=== PATIENT | female | born 1960 | race Caucasian/White ===

== ENCOUNTER → 2017-01-15 | Outpatient (CLI) | payer OTHER ==
[~2017-01-15] MED LIST: DICL100T PO; IMIT50TA PO; LORA-392 PO; ULTR50TA5 PO
[2017-01-15 14:44] LABS: AUTOMATED NEUTROPHIL # 3.4 TH/MM3 (1.8-7.7); BASOPHIL # 0.1 TH/MM3 (0-0.2); BASOPHIL % 1.5 % (0.0-2.0); EOSINOPHIL # 0.1 TH/MM3 (0-0.4); EOSINOPHIL % 2.2 % (0.0-4.0); HEMO FLAGS DIFF FINAL; LYMPH % 33.7 % (9.0-44.0); MEAN CELL VOLUME 81.5 FL (80.0-100.0); MEAN CORPUSCULAR HEMOGLOBIN 26.5 PG (27.0-34.0); MEAN CORPUSCULAR HGB CONC 32.5 % (32.0-36.0); MONO % 5.7 % (0.0-8.0); NEUT % 56.9 % (16.0-70.0); PLATELET COUNT 289 TH/MM3 (150-450); RED CELL DISTRIBUTION WIDTH 14.1 % (11.6-17.2)
[2017-01-15 14:55] LABS: APTT (PATIENT) 29.9 SEC (24.3-30.1); PROTHROMBIN TIME - PATIENT 10.9 SEC (9.8-11.6)
[2017-01-15 15:02] LABS: ANION GAP 6 MEQ/L (5-15); BICARBONATE 28.3 MEQ/L (21.0-32.0); BLOOD UREA NITROGEN 17 MG/DL (7-18); CHLORIDE 106 MEQ/L (98-107); GLUCOSE,FASTING 91 MG/DL (74-99); POTASSIUM 3.8 MEQ/L (3.5-5.1); SODIUM (NA) 140 MEQ/L (136-145)
[2017-01-15 15:06] LABS: ALKALINE PHOSPHATASE 87 U/L (45-117); ALT (GPT) 39 U/L (10-53); AST (GOT) 18 U/L (15-37); GLOMERULAR FILTRATION RATE 82 ML/MIN (>89); TOTAL BILIRUBIN ADULT 0.4 MG/DL (0.2-1.0)
--- NOTE | 2017-01-15 16:29 | RADRPT ---
EXAM DATE/TIME: 01/15/2017 15:42 [place] COMPARISON: No previous studies available for comparison. INDICATIONS : Evaluate for pneumonia, pneumothorax or communicable disease. Pre op for right kidney and cyst surger y. MEDICAL HISTORY : None. SURGICAL HISTORY : None. ENCOUNTER: Initial ACUITY: 1 day PAIN SCORE: 0/10 LOCATION: Bilateral chest FINDINGS: PA and lateral views of the chest demonstrate the lungs to be symmetrically aerated without evidence of mass, infiltrate or effusion. A moderate size hiatal hernia with air-fluid level. The cardiomedias tinal contours are unremarkable. Osseous structures are intact. CONCLUSION: Moderate size hiatal hernia. Clear lungs. Kevin Parish Jr., MD on January 15, 2017 at 16:27 Board Certified Radiologist. This report was verified electronically.
--- NOTE | 2017-01-17 18:43 | EKG ---
Date Performed: 01/15/2017 Time Performed: 14:40:38 PTAGE: 56 years EKG: Sinus rhythm POSSIBLE LEFT ATRIAL ENLARGEMENT RIGHT BUNDLE BRANCH BLOCK ABNORMAL ECG NO PREVIOUS TRACING DOCTOR: Truman Ricketts Interpretating Date/Time 01/17/2017 18:42:27
== END ==
LOC: CPRE 14:20
PROVIDERS: ATTEND Obstetrics & Gynecology Gynecologic Oncology
DX: Z01.810 Encounter for preprocedural cardiovascular examination (principal); Z01.812 Encounter for preprocedural laboratory examination; R19.09 Other intra-abdominal and pelvic swelling, mass and lump; I45.10 Unspecified right bundle-branch block
CPT/HCPCS: 36415; 71020; 80053; 82378; 85025; 85610; 85730; 86304; 93005

== ENCOUNTER 2017-01-21 06:07 | Inpatient (IN) | payer OTHER ==
[~2017-01-21] VITALS: Ht 162.6 cm; Wt 104.3 kg
[~2017-01-21 06:07] MED LIST changes: -LORA-392 PO; -ULTR50TA5 PO
[2017-01-21 06:30] VITALS: BP 197/96; PULSE 95; RESP 16; TEMP 97.5; O2SAT 99
[2017-01-21] MEDS ORDERED: SODIUM CHLORID 0.9% 500 ML IV PRN (06:30)
[2017-01-21] MEDS ORDERED: METOPROLOL TARTRATE 25 MG TAB PO PRN (06:30)
[2017-01-21] MEDS ORDERED: LACTATED RINGER'S 1000 ML IV PRN (06:30)
[2017-01-21] MEDS ORDERED: HEPARIN SODIUM - SQ 10,000 UNITS/ML VIAL SQ SCH (06:30)
[2017-01-21] MEDS ORDERED: CHLORHEXIDINE GLUCONATE 2 % 1 PACK (2 CLOTHS) TOPICAL PRN (06:30)
[2017-01-21] MEDS ORDERED: ceFAZolin 2 GM PREMIX 50 ML IV SCH (06:30)
[2017-01-21] MEDS ORDERED: INSULIN HUMAN REGULAR 1,000 UNITS/10 ML VIAL SQ PRN (06:30)
[2017-01-21] MEDS ORDERED: POVIDONE IODINE 5% (ANTISEPSIS KIT) 4 APPLICATIONS EACH NARE PRN (06:30)
[2017-01-21] MEDS ORDERED: ACETAMINOPHEN 1000 MG/100 ML VIAL IV ONE (07:28)
[2017-01-21] MEDS ORDERED: MIDAZOLAM HCL 2 MG/2 ML VIAL ONE (07:28)
[2017-01-21] MEDS ORDERED: ARTIFICIAL TEARS OPTH OINT 3.5 APPLIC/3.5 GM TUBO ONE (07:28)
[2017-01-21] MEDS ORDERED: DEXAMETHASONE SOD PHOS 4 MG/ML VIAL ONE (07:29)
[2017-01-21] MEDS ORDERED: fentaNYL CITRATE 250 MCG/5 ML AMP ONE ×2 (07:29→17:20)
[2017-01-21] MEDS ORDERED: SUGAMMADEX SODIUM 200 MG/2 ML VIAL IV PUSH ONE ×2 (07:29)
[2017-01-21] MEDS ORDERED: LIDOCAINE 1%/EPINEPHrine 1:100,000 SOLN 20 ML VIAL ONE (08:02)
[2017-01-21] MEDS ORDERED: ceFAZolin INJ 1,000 MG VIAL IV ONE ×2 (10:35→14:35)
[2017-01-21] MEDS ORDERED: MANNITOL INJ 50 ML ONE (10:52)
[2017-01-21] MEDS ORDERED: METHYLENE BLUE 10 MG/ML VIAL OTHER ONE (11:00)
[2017-01-21] MEDS ORDERED: ONDANSETRON HCL 4 MG/2 ML VIAL IV PUSH ONE (12:00)
[2017-01-21] MEDS ORDERED: LACTATED RINGER'S 1000 ML INJ 2,000 ML IV ONE (12:00)
[2017-01-21] MEDS ORDERED: ePHEDrine/NS 25 MG/5 ML SYR IV ONE (12:00)
[2017-01-21] MEDS ORDERED: PROPOFOL 200 MG/20 ML AMP IV ONE (12:00)
[2017-01-21] MEDS ORDERED: NORMOSOL R INJ 2,000 ML IV ONE (12:00)
[2017-01-21] MEDS ORDERED: PHENYLEPH/NS 1000 MCG/10 ML SYR IV ONE (12:00)
[2017-01-21] MEDS ORDERED: PHENYLEPHRINE HCL 10 MG/ML VIAL IV ONE (12:00)
[2017-01-21] MEDS ORDERED: diphenhydrAMINE HCL 25 MG CAP PO PRN (12:30)
[2017-01-21] MEDS ORDERED: SUMAtriptan SUCCINATE 50 MG TAB PO PRN (12:30)
[2017-01-21] MEDS ORDERED: oxyCODONE/ACETAMINOPHEN 5 MG/325 MG TAB PO PRN ×2 (12:30)
[2017-01-21] MEDS ORDERED: SODIUM CHLORIDE 0.9% FLUSH 10 ML FLUSH IV FLUSH PRN (12:30)
[2017-01-21] MEDS: KETOROLAC TROMETHAMINE 30 MG/ML (IVP) VIAL IVP SCH ×2 (12:30→18:30)
[2017-01-21 15:47] LABS: HEMATOCRIT 38.1 % (35.0-46.0); REVIEW FLAG FINAL
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
[2017-01-21] MEDS ORDERED: *morphine SULFATE 8 MG/ML PERIprocedure ONLY ONE (18:09)
[2017-01-21] MEDS ORDERED: *ONDANSETRON 4 MG VIAL PERIprocedural Use ONLY ONE (18:16)
[2017-01-21] MEDS: D5-1/2 NS + KCL 20 MEQ INJ 1,000 ML IV SCH ×2 (18:20→22:19)
[2017-01-21 20:30] VITALS: BP_SYST 122; BP_SYST 124; BP_DIAS 62; BP_DIAS 65; PULSE 81; RESP 20; TEMP 97.5; O2SAT 97
[2017-01-21] MEDS: HYDROmorphone HCL PF 1 MG/ML VIAL IVP PRN (20:31)
[2017-01-21] MEDS: SODIUM CHLORIDE 0.9% FLUSH 10 ML FLUSH IV FLUSH SCH (20:36)
[2017-01-21 20:43] VITALS: PULSE 81
[2017-01-21 22:00] VITALS: PULSE 68
[2017-01-22] VITALS (12 sets, daily range): BP systolic 101–160; BP diastolic 46–70; PULSE 66–86; RESP 15–28; TEMP 98.4–99.1; O2SAT 92–98
[2017-01-22] MEDS: ONDANSETRON HCL 4 MG/2 ML VIAL IVP PRN (00:28)
[2017-01-22] MEDS: KETOROLAC TROMETHAMINE 30 MG/ML (IVP) VIAL IVP SCH ×4 (00:28→17:40)
[2017-01-22 07:40] LABS: AUTOMATED NEUTROPHIL # 9.3 TH/MM3 (1.8-7.7); BASOPHIL % 0.2 % (0.0-2.0); HEMATOCRIT 32.4 % (35.0-46.0); HEMO FLAGS DIFF FINAL; LYMPH % 9.3 % (9.0-44.0); MEAN CELL VOLUME 81.9 FL (80.0-100.0); MEAN CORPUSCULAR HEMOGLOBIN 26.5 PG (27.0-34.0); MEAN CORPUSCULAR HGB CONC 32.3 % (32.0-36.0); MONO % 5.5 % (0.0-8.0); PLATELET COUNT 235 TH/MM3 (150-450); RED BLOOD COUNT 3.96 MIL/MM3 (4.00-5.30)
[2017-01-22] MEDS: D5-1/2 NS + KCL 20 MEQ INJ 1,000 ML IV SCH ×2 (08:19→12:50)
[2017-01-22 08:35] LABS: BICARBONATE 26.6 MEQ/L (21.0-32.0); POTASSIUM 4.2 MEQ/L (3.5-5.1)
[2017-01-22] MEDS ORDERED: LORazepam 2 MG/ML VIAL ONE (09:04)
--- NOTE | 2017-01-22 09:07 | HHI.PR ---
Subjective Patient symptoms today Postoperative day #1 Pain adequately controlled Objective Vital Signs Vital Signs Date Time Temp Pulse Resp B/P Pulse Ox O2 Delivery O2 Flow Rate FiO2 01/22/17 06:00 72 01/22/17 04:00 98.4 67 16 101/46 97 01/22/17 04:00 70 01/22/17 02:00 68 01/22/17 02:00 98.4 66 26 132/67 96 01/22/17 00:00 66 01/22/17 00:00 98.4 66 26 132/67 96 01/21/17 22:00 96 Nasal Cannula 2.00 01/21/17 22:00 68 01/21/17 20:43 81 01/21/17 20:30 97.5 81 20 122/62 97 124/65 01/21/17 20:00 97.6 80 15 120/58 98 Nasal Cannula 2 122/62 01/21/17 19:30 77 15 120/57 97 Nasal Cannula 2 119/58 01/21/17 19:15 79 15 113/58 97 Nasal Cannula 2 118/59 01/21/17 19:11 15 01/21/17 19:00 97.5 78 14 110/62 96 Nasal Cannula 2 114/60 01/21/17 18:45 83 13 127/66 100 Nasal Cannula 3 112/58 01/21/17 18:30 78 13 125/66 98 Nasal Cannula 3 109/64 01/21/17 18:15 79 14 136/75 99 Nasal Cannula 3 127/65 01/21/17 18:14 15 01/21/17 18:00 78 14 126/61 99 Nasal Cannula 3 129/70 01/21/17 17:50 97.8 83 18 132/78 98 Nasal Cannula 3 144/76 Intake & Output 01/22/17 01/22/17 07:00 19:00 Intake Total 1272 ml Output Total 1125 ml Balance 147 ml Intake Oral 20 ml IV Total 1252 ml Output Urine Total 1125 ml Result Diagram: 01/22/1771901/22/17719 Objective Remarks Abdomen soft, nondistended, mildly tender to palpation Wound sites clean and dry Extremities well-perfused, nontender Medications and IVs Current Medications Medications (Trade) Dose Ordered Sig/Carol Route Start Time Stop Time Status Last Admin Lactated Ringer's 1,000 ml @ 30 mls/hr Q24H PRN IV 01/21/17 06:30 01/24/17 06:29 01/21/17 06:30 (NS 500 ml Inj) 500 ml @ 30 mls/hr [id number] PRN IV 01/21/17 06:30 01/24/17 06:29 Sumatriptan Succinate 50 mg 50 mg ONCE PRN PO 01/21/17 12:30 01/22/17 12:29 (D5-1/2 NS + KCl 20 Meq Inj) 1,000 ml @ 100 mls/hr Q10H IV 01/21/17 12:19 01/21/17 22:19 (NS Flush) 2 ml UNSCH PRN IV FLUSH 01/21/17 12:30 (NS Flush) 2 ml BID IV FLUSH 01/21/17 21:00 01/21/17 20:36 (Toradol Inj) 30 mg Q6H IVP 01/21/17 12:30 01/23/17 06:31 01/22/17 06:17 (Dilaudid Pf Inj) 1 mg Q3H PRN IVP 01/21/17 12:30 01/21/17 20:31 (Benadryl) 25 mg Q6H PRN PO 01/21/17 12:30 (Zofran Inj) 4 mg Q6H PRN IVP 01/21/17 12:30 01/22/17 00:28 (Ativan) 0.5 mg Q8H PRN PO 01/21/17 12:30 (Ultram) 50 mg Q4H PRN PO 01/22/17 09:00 Assessment and Plan Assessment and Plan Urologic impression: Status post right partial nephrectomy with expected postoperative course. Plan: #1 out of bed to chair #2 continue with analgesic support #3 continue with incentive spirometry #4 advance diet as tolerated #5 check renal pathology when available Gal Arellano MD January 22, 2017 09:07
[2017-01-22] MEDS: SODIUM CHLORIDE 0.9% FLUSH 10 ML FLUSH IV FLUSH SCH ×2 (09:11→20:06)
[2017-01-22] MEDS ORDERED: LORazepam 2 MG/ML VIAL IV PRN (09:15)
[2017-01-22] MEDS: traMADol HCL 50 MG TAB PO PRN (14:39)
[2017-01-23] VITALS (10 sets, daily range): BP systolic 146–184; BP diastolic 56–90; PULSE 73–90; RESP 16–21; TEMP 96.1–99; O2SAT 94–97
[2017-01-23] MEDS: KETOROLAC TROMETHAMINE 30 MG/ML (IVP) VIAL IVP SCH ×2 (00:47→06:12)
[2017-01-23] MEDS: traMADol HCL 50 MG TAB PO PRN ×5 (03:23→21:47)
[2017-01-23] MEDS: D5-1/2 NS + KCL 20 MEQ INJ 1,000 ML IV SCH ×3 (03:53→21:48)
--- NOTE | 2017-01-23 07:36 | PD.ONC.PN ---
Subjective Subjective Remarks POD #2 pt feels well pain controlled denies nausea or vomiting Objective Data Date Time Temp Pulse Resp B/P Pulse Ox O2 Delivery O2 Flow Rate FiO2 01/23/17 07:00 96 Room Air 01/23/17 06:00 85 01/23/17 04:00 98.0 80 20 158/78 96 01/23/17 04:00 80 01/23/17 02:00 84 01/23/17 00:00 99.0 76 16 146/56 94 01/23/17 00:00 76 01/22/17 22:00 72 01/22/17 20:00 74 01/22/17 20:00 99.1 74 15 160/70 95 01/22/17 19:00 95 Room Air 01/22/17 18:40 19 01/22/17 18:00 70 01/22/17 16:00 98.5 86 17 126/58 94 01/22/17 16:00 86 01/22/17 14:00 83 01/22/17 12:00 76 28 121/60 92 01/22/17 12:00 76 01/22/17 10:00 78 01/22/17 08:00 98.4 70 16 104/54 98 Arterial Line 01/22/17 08:00 70 01/23/17 01/23/17 01/23/17 07:00 15:00 23:00 Intake Total 899 ml Output Total 575 ml Balance 324 ml Result Diagram: 01/22/17 0720 01/22/17 0720 Administered Medications Medications (Trade) Dose Ordered Sig/Carol Route PRN Reason Start Time Stop Time Status Last Admin Dose Admin Lactated Ringer's 1,000 ml @ 30 mls/hr Q24H PRN IV SEE LABEL COMMENTS 01/21/17 06:30 01/24/17 06:29 01/21/17 06:30 Potassium Chloride/Dextrose/ Sod Cl (D5-1/2 NS + KCl 20 Meq Inj) 1,000 ml @ 100 mls/hr Q10H IV 01/21/17 12:19 01/23/17 03:53 Sodium Chloride (NS Flush) 2 ml BID IV FLUSH 01/21/17 21:00 01/22/17 20:06 Hydromorphone HCl (Dilaudid Pf Inj) 1 mg Q3H PRN IVP PAIN SCALE 6 TO 10 01/21/17 12:30 01/21/17 20:31 Ondansetron HCl (Zofran Inj) 4 mg Q6H PRN IVP NAUSEA OR VOMITING 01/21/17 12:30 01/22/17 00:28 Tramadol HCl (Ultram) 50 mg Q4H PRN PO PAIN SCALE 1 TO 5 01/22/17 09:00 01/23/17 03:23 Objective Remarks GENERAL: Well-nourished, well-developed patient. SKIN: Warm and dry. HEAD: Normocephalic. EYES: No scleral icterus. No injection or drainage. CARDIOVASCULAR: Regular rate and rhythm without murmurs. RESPIRATORY: Breath sounds equal bilaterally. No accessory muscle use. GASTROINTESTINAL: Abdomen soft, non-tender, nondistended. SS are c/d/i EXTREMITIES: teds and scds MUSCULOSKELETAL: Adequate muscle tone. NEUROLOGICAL: No obvious focal deficit. Awake, alert, and oriented x3. PSYCHIATRIC: Appropriate mood and affect; insight and judgment normal. Assessment/Plan Problem List: (1) Renal mass, right Status: Resolved Plan: s/p partial right nephrectomy followed by Dr. Arellano (2) Pelvic mass in female Status: Resolved Plan: s/p RA lap hyst with BSO and resection of large pelvic mass remove moreno cath POD #2, ok to transfer to floor ok to get OOB to chair BID ADAT pain control encourage IS and deep breathing Attending Statement Dr. Chun is in agreement with this plan of care. Sheri Hogan January 23, 2017 07:36
[2017-01-23] MEDS: SODIUM CHLORIDE 0.9% FLUSH 10 ML FLUSH IV FLUSH SCH ×2 (09:46→21:00)
[2017-01-23] MEDS: HYDROmorphone HCL PF 1 MG/ML VIAL IVP PRN (09:46)
[2017-01-23] MEDS: ONDANSETRON HCL 4 MG/2 ML VIAL IVP PRN ×2 (11:43→17:50)
--- NOTE | 2017-01-23 13:09 | HHI.PR ---
Subjective Patient symptoms today Postoperative day #2 Complains of feeling nauseous Pain adequately controlled Objective Vital Signs Vital Signs Date Time Temp Pulse Resp B/P Pulse Ox O2 Delivery O2 Flow Rate FiO2 01/23/17 10:00 85 01/23/17 08:00 81 01/23/17 08:00 98.6 78 21 169/83 95 01/23/17 07:00 96 Room Air 01/23/17 06:00 85 01/23/17 04:00 98.0 80 20 158/78 96 01/23/17 04:00 80 01/23/17 02:00 84 01/23/17 00:00 99.0 76 16 146/56 94 01/23/17 00:00 76 01/22/17 22:00 72 01/22/17 20:00 74 01/22/17 20:00 99.1 74 15 160/70 95 01/22/17 19:00 95 Room Air 01/22/17 18:40 19 01/22/17 18:00 70 01/22/17 16:00 98.5 86 17 126/58 94 01/22/17 16:00 86 01/22/17 14:00 83 Intake & Output 01/23/17 01/23/17 06:59 18:59 Intake Total 1728 ml Output Total 1150 ml Balance 578 ml Intake Oral 200 ml IV Total 1528 ml Output Urine Total 1150 ml Result Diagram: 01/22/17 0720 01/22/17 0720 Objective Remarks Abdomen soft, nondistended, mildly tender to palpation Wound sites clean and dry Extremities well-perfused, nontender Medications and IVs Current Medications Medications (Trade) Dose Ordered Sig/Carol Route Start Time Stop Time Status Last Admin Lactated Ringer's 1,000 ml @ 30 mls/hr Q24H PRN IV 01/21/17 06:30 01/24/17 06:29 01/21/17 06:30 Sodium Chloride 500 ml @ 30 mls/hr [id number] PRN IV 01/21/17 06:30 01/24/17 06:29 (D5-1/2 NS + KCl 20 Meq Inj) 1,000 ml @ 100 mls/hr Q10H IV 01/21/17 12:19 01/23/17 09:45 (NS Flush) 2 ml UNSCH PRN IV FLUSH 01/21/17 12:30 (NS Flush) 2 ml BID IV FLUSH 01/21/17 21:00 01/23/17 09:46 (Dilaudid Pf Inj) 1 mg Q3H PRN IVP 01/21/17 12:30 01/23/17 09:46 (Benadryl) 25 mg Q6H PRN PO 01/21/17 12:30 (Zofran Inj) 4 mg Q6H PRN IVP 01/21/17 12:30 01/23/17 11:43 (Ativan) 0.5 mg Q8H PRN PO 01/21/17 12:30 (Ultram) 50 mg Q4H PRN PO 01/22/17 09:00 01/23/17 07:55 (Ativan Inj) 0.25 mg Q8H PRN IV 01/22/17 09:15 Assessment and Plan Assessment and Plan Urologic impression: Status post right partial nephrectomy with expected postoperative course. Plan: #1 encourage ambulation #2 continue with analgesic support #3 continue with incentive spirometry #4 advance diet as tolerated #5 discontinue Lamb catheter #6 check renal pathology when available Gal Arellano MD January 23, 2017 13:08
[2017-01-23] MEDS: LORazepam 0.5 MG TAB PO PRN (16:33)
[2017-01-24] VITALS (7 sets, daily range): BP systolic 119–175; BP diastolic 76–94; PULSE 77–113; RESP 16–20; TEMP 97.7–99; O2SAT 94–96
[2017-01-24] MEDS: LORazepam 0.5 MG TAB PO PRN (00:23)
[2017-01-24] MEDS: HYDROmorphone HCL PF 1 MG/ML VIAL IVP PRN ×6 (01:45→22:34)
[2017-01-24] MEDS: ONDANSETRON HCL 4 MG/2 ML VIAL IVP PRN ×2 (01:45→18:37)
[2017-01-24 05:08] LABS: HEMATOCRIT 28.3 % (35.0-46.0); MEAN CELL VOLUME 81.2 FL (80.0-100.0); MEAN CORPUSCULAR HEMOGLOBIN 27.7 PG (27.0-34.0); MEAN CORPUSCULAR HGB CONC 34.1 % (32.0-36.0); PLATELET COUNT 193 TH/MM3 (150-450); RED BLOOD COUNT 3.49 MIL/MM3 (4.00-5.30); RED CELL DISTRIBUTION WIDTH 13.8 % (11.6-17.2); REVIEW FLAG FINAL; WHITE BLOOD COUNT 10.4 TH/MM3 (4.0-11.0)
[2017-01-24 05:37] LABS: MAGNESIUM 1.9 MG/DL (1.5-2.5); POTASSIUM 4.1 MEQ/L (3.5-5.1)
[2017-01-24] MEDS: D5-1/2 NS + KCL 20 MEQ INJ 1,000 ML IV SCH (08:02)
[2017-01-24] MEDS: SODIUM CHLORIDE 0.9% FLUSH 10 ML FLUSH IV FLUSH SCH ×2 (08:03→21:00)
--- NOTE | 2017-01-24 08:20 | PD.ONC.PN ---
Subjective Subjective Remarks POD #3 pt states pain in controlled denies any n/v was OOB to chair yesterday encourage intake and d/c josh reyes RN at bedside Objective Data Date Time Temp Pulse Resp B/P Pulse Ox O2 Delivery O2 Flow Rate FiO2 01/24/17 05:00 98.3 84 16 153/89 96 01/24/17 00:00 99.0 93 18 171/90 96 01/23/17 20:30 Room Air 01/23/17 20:15 97.9 90 18 170/90 96 01/23/17 15:50 97.4 76 16 158/79 97 01/23/17 13:57 74 18 174/86 01/23/17 11:30 96.1 73 16 184/84 94 01/23/17 10:00 85 Result Diagram: 01/24/17 0448 01/24/17 0448 Laboratory Results Laboratory Tests Test 01/24/17 04:48 White Blood Count 10.4 TH/MM3 Red Blood Count 3.49 MIL/MM3 Hemoglobin 9.7 GM/DL Hematocrit 28.3 % Mean Corpuscular Volume 81.2 FL Mean Corpuscular Hemoglobin 27.7 PG Mean Corpuscular Hemoglobin 34.1 % Concent Red Cell Distribution Width 13.8 % Platelet Count 193 TH/MM3 Mean Platelet Volume 8.5 FL Sodium Level 138 MEQ/L Potassium Level 4.1 MEQ/L Chloride Level 103 MEQ/L Carbon Dioxide Level 29.0 MEQ/L Anion Gap 6 MEQ/L Blood Urea Nitrogen 8 MG/DL Creatinine 0.79 MG/DL Estimat Glomerular Filtration 75 ML/MIN Rate Random Glucose 104 MG/DL Calcium Level 7.9 MG/DL Phosphorus Level 2.1 MG/DL Magnesium Level 1.9 MG/DL Administered Medications Medications (Trade) Dose Ordered Sig/Carol Route PRN Reason Start Time Stop Time Status Last Admin Dose Admin Potassium Chloride/Dextrose/ Sod Cl (D5-1/2 NS + KCl 20 Meq Inj) 1,000 ml @ 100 mls/hr Q10H IV 01/21/17 12:19 01/24/17 08:02 Sodium Chloride (NS Flush) 2 ml BID IV FLUSH 01/21/17 21:00 01/23/17 09:46 Hydromorphone HCl (Dilaudid Pf Inj) 1 mg Q3H PRN IVP PAIN SCALE 6 TO 10 01/21/17 12:30 01/24/17 06:40 Ondansetron HCl (Zofran Inj) 4 mg Q6H PRN IVP NAUSEA OR VOMITING 01/21/17 12:30 01/24/17 01:45 Lorazepam (Ativan) 0.5 mg Q8H PRN PO ANXIETY 01/21/17 12:30 01/24/17 00:23 Tramadol HCl (Ultram) 50 mg Q4H PRN PO PAIN SCALE 1 TO 5 01/22/17 09:00 01/23/17 21:47 Objective Remarks GENERAL: Well-nourished, well-developed patient. SKIN: Warm and dry. HEAD: Normocephalic. EYES: No scleral icterus. No injection or drainage. CARDIOVASCULAR: Regular rate and rhythm without murmurs. RESPIRATORY: Breath sounds equal bilaterally. No accessory muscle use. GASTROINTESTINAL: Abdomen soft, non-tender, nondistended. SS are c/d/i EXTREMITIES: teds and scds MUSCULOSKELETAL: Adequate muscle tone. NEUROLOGICAL: No obvious focal deficit. Awake, alert, and oriented x3. PSYCHIATRIC: Appropriate mood and affect; insight and judgment normal. Assessment/Plan Problem List: (1) Renal mass, right Status: Resolved Plan: s/p partial right nephrectomy followed by Dr. Arellano (2) Pelvic mass in female Status: Resolved Plan: s/p RA lap hyst with BSO and resection of large pelvic mass POD #3 ADAT OOB to chair and ambulate encourage intake and d/c moreno today will decrease IVF to KVO Dr. Chun ordered K phos for electrolyte replacement anticipate discharge home in next 24 hours Sheri Hogan January 24, 2017 08:20
[2017-01-24] MEDS: POTASSIUM PHOSPHATE/SODIUM PHOSPHATE 250 MG TAB PO SCH ×2 (14:08→22:32)
--- NOTE | 2017-01-24 14:16 | HHI.PR ---
Subjective Patient symptoms today Postoperative day #3 Feeling better today Tolerating regular diet Objective Vital Signs Vital Signs Date Time Temp Pulse Resp B/P Pulse Ox O2 Delivery O2 Flow Rate FiO2 01/24/17 12:49 86 157/76 01/24/17 11:53 98.0 77 20 175/94 94 01/24/17 08:13 96 Room Air 21 01/24/17 07:00 97.7 81 20 141/88 95 01/24/17 05:00 98.3 84 16 153/89 96 01/24/17 00:00 99.0 93 18 171/90 96 01/23/17 20:30 Room Air 01/23/17 20:15 97.9 90 18 170/90 96 01/23/17 15:50 97.4 76 16 158/79 97 Intake & Output 01/24/17 01/24/17 07:00 19:00 Intake Total 2148 ml Output Total 850 ml 425 ml Balance 1298 ml -425 ml Intake Oral 480 ml IV Total 1668 ml Output Urine Total 850 ml 425 ml Result Diagram: 01/24/17 0448 01/24/17447 Other Results Pathology demonstrated renal cell carcinoma with negative surgical margins. pT1a pNX. Objective Remarks Abdomen soft, nondistended, mildly tender to palpation Wound sites clean and dry Extremities well-perfused, nontender Medications and IVs Current Medications Medications (Trade) Dose Ordered Sig/Carol Route Start Time Stop Time Status Last Admin (D5-1/2 NS + KCl 20 Meq Inj) 1,000 ml @ 0 mls/hr Q10H IV 01/21/17 12:19 01/24/17 08:02 (NS Flush) 2 ml UNSCH PRN IV FLUSH 01/21/17 12:30 (NS Flush) 2 ml BID IV FLUSH 01/21/17 21:00 01/23/17 09:46 (Dilaudid Pf Inj) 1 mg Q3H PRN IVP 01/21/17 12:30 01/24/17 14:08 (Benadryl) 25 mg Q6H PRN PO 01/21/17 12:30 (Zofran Inj) 4 mg Q6H PRN IVP 01/21/17 12:30 01/24/17 01:45 (Ativan) 0.5 mg Q8H PRN PO 01/21/17 12:30 01/24/17 00:23 (Ultram) 50 mg Q4H PRN PO 01/22/17 09:00 01/23/17 21:47 (Ativan Inj) 0.25 mg Q8H PRN IV 01/22/17 09:15 01/24/17 11:29 (K-Phos Neutral) 250 mg Q8HR PO 01/24/17 14:00 01/25/17 12:00 01/24/17 14:08 Assessment and Plan Assessment and Plan Urologic impression: Status post right partial nephrectomy with expected postoperative course. Plan: #1 encourage ambulation #2 continue with analgesic support #3 discontinue Lamb catheter #4 anticipate discharge home tomorrow Gal Arellano MD January 24, 2017 14:16
[2017-01-25] VITALS: BP 145/78; PULSE 89; RESP 17; TEMP 98.5; O2SAT 95
[2017-01-25] MEDS: HYDROmorphone HCL PF 1 MG/ML VIAL IVP PRN ×2 (01:22→08:13)
[2017-01-25] MEDS: LORazepam 0.5 MG TAB PO PRN (01:51)
[2017-01-25 04:00] VITALS: BP 158/81; PULSE 78; RESP 18; TEMP 99; O2SAT 95
[2017-01-25] MEDS: POTASSIUM PHOSPHATE/SODIUM PHOSPHATE 250 MG TAB PO SCH (05:55)
[2017-01-25] MEDS ORDERED: LORA-392 PO (07:04)
[2017-01-25] MEDS ORDERED: ULTR50TA5 PO (07:04)
[2017-01-25 08:00] VITALS: BP 134/69; PULSE 81; RESP 17; TEMP 98.8; O2SAT 95
[2017-01-25] MEDS: ONDANSETRON HCL 4 MG/2 ML VIAL IVP PRN (08:14)
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
[2017-01-25 12:00] VITALS: BP 131/66; PULSE 79; RESP 16; TEMP 97.9; O2SAT 96
--- NOTE | 2017-01-25 13:25 | HHI.PR ---
Subjective Patient symptoms today Feeling better today. Tolerating oral intake well. Pain adequately controlled. Ambulating well. Objective Vital Signs Vital Signs Date Time Temp Pulse Resp B/P Pulse Ox O2 Delivery O2 Flow Rate FiO2 01/25/17 12:00 97.9 79 16 131/66 96 01/25/17 08:00 98.8 81 17 134/69 95 01/25/17 04:00 99.0 78 18 158/81 95 01/25/17 00:00 98.5 89 17 145/78 95 01/24/17 20:20 Room Air 01/24/17 20:00 98.1 19 145/88 96 01/24/17 15:51 98.1 113 20 119/76 94 Result Diagram: 01/24/17 0448 01/24/178 Objective Remarks Abdomen soft, nondistended, mildly tender to palpation Wound sites clean and dry Extremities well-perfused, nontender Medications and IVs Current Medications Medications (Trade) Dose Ordered Sig/Carol Route Start Time Stop Time Status Last Admin (D5-1/2 NS + KCl 20 Meq Inj) 1,000 ml @ 0 mls/hr Q10H IV 01/21/17 12:19 01/24/17 08:02 (NS Flush) 2 ml UNSCH PRN IV FLUSH 01/21/17 12:30 (NS Flush) 2 ml BID IV FLUSH 01/21/17 21:00 01/23/17 09:46 (Dilaudid Pf Inj) 1 mg Q3H PRN IVP 01/21/17 12:30 01/25/17 08:13 (Benadryl) 25 mg Q6H PRN PO 01/21/17 12:30 (Zofran Inj) 4 mg Q6H PRN IVP 01/21/17 12:30 01/25/17 08:14 (Ativan) 0.5 mg Q8H PRN PO 01/21/17 12:30 01/25/17 01:51 (Ultram) 50 mg Q4H PRN PO 01/22/17 09:00 01/23/17 21:47 (Ativan Inj) 0.25 mg Q8H PRN IV 01/22/17 09:15 01/24/17 11:29 Assessment and Plan Assessment and Plan Urologic impression: #1 status post robot-assisted laparoscopic right partial nephrectomy #2 pathology demonstrated renal cell carcinoma with negative surgical margins Plan: #1 urologically stable to discharge home #2 patient advised to follow up with me in the office in approximately 2-3 weeks Gal Arellano MD January 25, 2017 13:25
[2017-01-25] MEDS: traMADol HCL 50 MG TAB PO PRN (13:34)
--- NOTE | 2017-01-28 08:13 | MD ---
cc: VAISHALI ORDONEZ,MAGY MORSE,KEVIN ALEMAN,SABRA ARELLANO,GURDEEP Fan MD ADMISSION DATE: 01/21/2017 DISCHARGE DATE: 01/25/2017 PROCEDURE 01/21/2017, robotic-assisted laparoscopic hysterectomy, bilateral salpingo-oophorectomy (including removal of a 28 cm left ovarian cystic mass) and robotic-assisted laparoscopic right partial nephrectomy. HOSPITAL COURSE She did well during the hospital course, initially watched in the intensive care unit, progressed and transferred to the [facility]. The patient's labs yesterday, H&H 9.7, 28.3, white count 10.4, platelet count 193. Electrolytes essentially normal, phosphorus slightly low at 2.1 being replaced, renal function normal, BUN and creatinine 8, 0.79. In's and out's last 24 hours 1970/1475 plus voiding. PHYSICAL EXAMINATION VITAL SIGNS: She remained afebrile, pulse 78-113, respirations 17-20, blood pressure 119-158 over 76-81, O2 saturations greater than equal to 95%. GENERAL: Alert and oriented x3, in no acute distress. LUNGS: Lungs are clear. CARDIOVASCULAR: Regular rate and rhythm. ABDOMEN: The abdominal laparoscopic incisions are clean and dry. RIVET HEATER: No bleeding. EXTREMITIES: No palpable cords, nontender. ASSESSMENT Postoperative day #4, tolerating oral intake, able to void without to difficulty, increasing her out of bed activity. Hemodynamically stable. Activities restrictions were reviewed. Preliminary pathology was discussed. Questions were answered. She expressed good understanding. PLAN Anticipate discharge to home with plans to follow up with Sabra Aleman in 2 weeks and follow up with Dr. Arellano in urology in 2 weeks. She is to resume her prior medications. Prescription for tramadol and Ativan and our office number is made available. She is to contact us should she have any questions or problems between now and the time of scheduled followup. MD SHIRA Rock/PIO /7:10 AM /7:58 AM
== END 2017-01-25 16:17 | disposition home or self-care (01) | DRG 658 ==
LOC: HSDC 06:07 → HSDI 12:23 → N03A 20:15 → HOCA 01-23 11:22
PROVIDERS: ADMIT Obstetrics & Gynecology Gynecologic Oncology; ATTEND Obstetrics & Gynecology Gynecologic Oncology
PROC: 0UTC4ZZ Resection of Cervix, Percutaneous Endoscopic Approach (ICD-10-PCS; 2017-01-21)
PROC: 0UT24ZZ Resection of Bilateral Ovaries, Percutaneous Endoscopic Approach (ICD-10-PCS; 2017-01-21)
PROC: 0UT74ZZ Resection of Bilateral Fallopian Tubes, Percutaneous Endoscopic Approach (ICD-10-PCS; 2017-01-21)
PROC: 0DNW4ZZ Release Peritoneum, Percutaneous Endoscopic Approach (ICD-10-PCS; 2017-01-21)
PROC: 8E0W4CZ Robotic Assisted Procedure of Trunk Region, Percutaneous Endoscopic Approach (ICD-10-PCS; 2017-01-21)
PROC: 0TB14ZZ Excision of Left Kidney, Percutaneous Endoscopic Approach (ICD-10-PCS; principal; 2017-01-21 07:45)
PROC: 0UT94ZZ Resection of Uterus, Percutaneous Endoscopic Approach (ICD-10-PCS; 2017-01-21 07:45)
DX: C64.2 Malignant neoplasm of left kidney, except renal pelvis (principal); D27.1 Benign neoplasm of left ovary; N84.0 Polyp of corpus uteri; K66.0 Peritoneal adhesions (postprocedural) (postinfection)
CPT/HCPCS: 80048; 83735; 84100; 85014; 85018; 85025; 85027; 86850; 86900; 86901; 86920; 88305; 88307; 88331; 94150; J0131; J0690; J1100; J1170; J1644; J1885; J2060; J2150; J2250; J2270; J2370; J2405; J3010; J3480; J7120